=== PATIENT | female | born 2000 | race Caucasian/White ===

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

== ENCOUNTER 2020-11-05 14:51 | Emergency (ER) | payer OTHER ==
[~2020-11-05] VITALS: Ht 165.1 cm; Wt 46.1 kg
[2020-11-05 15:03] VITALS: BP 130/74
[2020-11-05 16:27] LABS: MICROSCOPIC INDICATED
[2020-11-05] MEDS ORDERED: HYDROcodone/APAP 5/325 TABLET PO ONE (16:30)
[2020-11-05] MEDS ORDERED: KETOROLAC 30 MG/1 ML IM ONE (16:30)
[2020-11-05] MEDS ORDERED: HYDROcodone/APAP 5/325 TABLET ONE (16:34)
[2020-11-05] MEDS ORDERED: KETOROLAC 30 MG/1 ML ONE (16:34)
--- NOTE | 2020-11-05 16:40 | NUR ---
MEDICATED PER EMAR
--- NOTE | 2020-11-05 16:59 | NUR ---
ultrasound at bedside
[2020-11-05 17:01] LABS: BASOPHILS % (AUTO) 1 % (0-1); EOSINOPHILS % (AUTO) 1 % (1-7); LYMPHOCYTES % (AUTO) 21 % (22-44); MEAN CORPUSCULAR HEMOGLOBIN 30.3 pg (27.0-34.8); MEAN CORPUSCULAR HGB CONC 33.9 g/dL (32.4-35.8); MEAN PLATELET VOLUME 7.2 fL (7.4-10.4); MONOCYTES % (AUTO) 10 % (2-9); NEUTROPHILS % (AUTO) 67 % (42-75); PLATELET COUNT 290 x10^3/uL (130-400); RED BLOOD COUNT 4.58 x10^6/uL (3.82-5.3); RED CELL DISTRIBUTION WIDTH 13.7 % (9.6-15.2)
[2020-11-05 17:02] LABS: MD NO
[2020-11-05 17:11] LABS: ALBUMIN 3.9 g/dL (3.4-5.0); ANION GAP 4 mmol/L (5-15); CHLORIDE 113 mmol/L (98-107); CREATININE 0.84 mg/dL (0.55-1.02)
--- NOTE | 2020-11-05 17:18 | NUR ---
WITH REASSESMENT PAIN IMPROVED TO 4/10
[2020-11-05] MEDS ORDERED: HYDROmorphone 1 MG/ML, 1ML INJ ONE (17:27)
--- NOTE | 2020-11-05 17:30 | NUR ---
MEDICATED PER EMAR FOR INCREASED PAIN (9/10)WITH ULTRASOUND
[2020-11-05] MEDS ORDERED: HYDROmorphone 1 MG/ML, 1ML INJ IM ONE (18:00)
[2020-11-05] MEDS ORDERED: CEFTRIAXONE 250 MG ONE (18:41)
[2020-11-05] MEDS ORDERED: AZITHROMYCIN 500 MG TABLET ONE (18:41)
[2020-11-05 18:55] LABS: CLUE CELLS NONE SEEN (NONE SEEN); WET PREP WBCS NONE SEEN (FEW)
[2020-11-05] MEDS ORDERED: CEFTRIAXONE 250 MG IM ONE (19:00)
[2020-11-05] MEDS ORDERED: AZITHROMYCIN 500 MG TABLET PO ONE (19:00)
== END 2020-11-05 19:17 | disposition home or self-care (01) ==
LOC: ED 16:53
DX: N73.0 Acute parametritis and pelvic cellulitis (principal); N72 Inflammatory disease of cervix uteri; F17.200 Nicotine dependence, unspecified, uncomplicated
CPT/HCPCS: 36415; 76830; 80048; 81001; 82040; 84702; 85025; 87086; 87210; 87491; 87591; 87808; 96372; 99284; J0696; J1170; J1885